=== PATIENT | female | born 1960 | race Caucasian/White ===

== ENCOUNTER 2017-10-29 22:11 | Observation (INO) | payer MEDICARE, MEDICAID ==
[2017-10-29] MEDS ORDERED: Sodium Chloride 0.9% 1,000 ML IV ONE (22:14)
[2017-10-29] MEDS ORDERED: Sodium Chloride 0.9% 2.5 ML Syringe FLUSH PRN ×2 (22:14)
[2017-10-29] MEDS ORDERED: Sodium Chloride 0.9% 10 ML Syringe FLUSH PRN (22:14)
[2017-10-29] MEDS ORDERED: Aspirin 81 MG Tab.Chew PO ONE (22:14)
--- NOTE | 2017-10-29 22:17 | EDM.PDOC ---
ED HPI GENERAL MEDICAL PROBLEM - General Stated Complaint: CHEST PAIN Time Seen by Provider: 10/29/17 22:14 Source of Information: Reports: Patient History Limitations: Reports: No Limitations - History of Present Illness INITIAL COMMENTS - FREE TEXT/NARRATIVE: HISTORY AND PHYSICAL: History of present illness: 57-year-old female presented to emergency department with chief complaint of chest pain starting approximately 45 minutes ago with past medical history of hypertension and anxiety/depression. Patient states that she was sorting boxes while sitting in a chair when she began to have substernal chest pain. She does report some associated shortness of breath but no nausea or diaphoresis. Pain lasted for approximately 15-20 minutes but was relieved before she got to the emergency room. She describes pain as dull and constant. As above patient states the pain went away on its own. She did not take any medications. She has never had similar chest pain in the past. She does report that she's had "mini strokes" in the past but is not on a blood thinner other than aspirin daily. Patient was feeling her normal self today and denies any recent illness. She does report that she has been somewhat anxious and stressed this evening. She has not taken her antianxiety medications. She currently denies any chest pain, palpitations, shortness of breath, syncopal episodes, or focal neurologic deficits. Initial EKG showed NSR with left bundle branch lock with a rate of 90. Initial blood pressure 190 systolic. On initial exam patient is somewhat anxious and overall nondiaphoretic or short of breath. 2240-CBC reveals mild leukocytosis at 13.5k Review of systems: As per history of present illness and below otherwise all systems reviewed and negative. Past medical history: As per history of present illness and as reviewed below otherwise noncontributory. Surgical history: As per history of present illness and as reviewed below otherwise noncontributory. Social history: No reported history of drug or alcohol abuse. Family history: As per history of present illness and as reviewed below otherwise noncontributory. Physical exam: HEENT: Atraumatic, normocephalic, pupils reactive, negative for conjunctival pallor or scleral icterus, mucous membranes moist, throat clear, neck supple, nontender, trachea midline. Lungs: Clear to auscultation, breath sounds equal bilaterally, chest nontender. Heart: S1S2, regular, negative for clicks, rubs, or JVD. Abdomen: Soft, nondistended, nontender. Negative for masses or hepatosplenomegaly. Negative for costovertebral tenderness. Pelvis: Stable nontender. Genitourinary: Deferred. Rectal: Deferred. Extremities: Atraumatic, negative for cords or calf pain. Neurovascular unremarkable. Neuro: Awake, alert, oriented. Cranial nerves II through XII unremarkable. Cerebellum unremarkable. Motor and sensory unremarkable throughout. Exam nonfocal. Diagnostics: CBC, CMP, troponin, INR, EKG, chest x-ray Therapeutics: Aspirin 324 mg by mouth 1, 1 L normal saline, 1 mg Ativan IV 1 Impression: Atypical chest pain Plan: CBC did show some mild leukocytosis but most likely secondary to stress as no other findings were consistent with a infection. Urinalysis as well as CMP were unremarkable. Troponin was negative and EKG showed no significant ST changes. Chest x-ray did show some pulmonary vascular congestion but no effusion. Patient remained stable with normal oxygen saturation and no return of her chest pain. Most likely anxiety related however did call hospitalist Dr. Vazquez who admitted patient for observation atypical chest pain. Definitive disposition and diagnosis as appropriate pending reevaluation and review of above. chest Pain Score (Numeric/FACES): 2 - Related Data Allergies Allergy/AdvReac Type Severity Reaction Status Date / Time No Known Allergies Allergy Verified 12/08/13 22:28 Home Meds: Home Meds ARIPiprazole [Abilify] 10 mg PO 12/08/13 [History] Aspirin/Acetaminophen/Caffeine [Migraine Relief Caplet] 1 tab PO DAILY PRN 12/08 [History] Chlorthalidone 1.5 tab PO DAILY 12/08/13 [History] Desvenlafaxine [Pristiq] 100 mg PO DAILY 12/08/13 [History] PARoxetine [Paxil] 40 mg PO DAILY 12/08/13 [History] Temazepam 15 mg PO BEDTIME 12/08/13 [History] Topiramate 200 mg PO 12/08/13 [History] Verapamil HCl [Verapamil ER] 180 mg PO DAILY 12/08/13 [History] ED ROS GENERAL - Review of Systems Review Of Systems: ROS reveals no pertinent complaints other than HPI. ED EXAM, GENERAL - Physical Exam Exam: See Below Course - Vital Signs Last Recorded V/S: Last Vital Signs Temp 97 F 10/29/17 22:11 Pulse 88 10/29/17 23:30 Resp 18 10/29/17 23:30 BP 182/81 H 10/29/17 23:30 Pulse Ox 96 10/29/17 23:30 - Orders/Labs/Meds Orders: Active Orders 24 hr Category Date Time Status Admission Status [Patient Status] [ADT] Stat ADT 10/30/17 01:00 Active Cardiac Monitoring [RC] . DIRECTED Care 10/29/17 22:14 Active Cardiac Monitoring [RC] . DIRECTED Care 10/30/17 01:00 Active EKG Documentation Completion [RC] STAT Care 10/29/17 22:14 Active Oxygen Therapy [RC] ASDIRECTED Care 10/29/17 22:14 Active Pulse Oximetry [RC] ASDIRECTED Care 10/29/17 22:14 Active Chest 1V Frontal [CR] Stat Exams 10/29/17 22:14 Taken CULTURE URINE [RM] Stat Lab 10/30/17 00:31 Ordered UA W/MICROSCOPIC [URIN] Stat Lab 10/30/17 00:31 Ordered Sodium Chloride 0.9% [Saline Flush] Med 10/29/17 22:14 Active 10 ml FLUSH ASDIRECTED PRN Sodium Chloride 0.9% [Saline Flush] Med 10/29/17 22:14 Active 2.5 ml FLUSH ASDIRECTED PRN Sodium Chloride 0.9% [Saline Flush] Med 10/29/17 22:14 Active 2.5 ml FLUSH ASDIRECTED PRN Saline Lock Insert [OM.PC] Stat Oth 10/29/17 22:14 Ordered Medication Orders Sodium Chloride (Saline Flush) 2.5 ml FLUSH ASDIRECTED PRN PRN Reason: Keep Vein Open Sodium Chloride (Saline Flush) 10 ml FLUSH ASDIRECTED PRN PRN Reason: Keep Vein Open Sodium Chloride (Saline Flush) 2.5 ml FLUSH ASDIRECTED PRN PRN Reason: Keep Vein Open Labs: Laboratory Tests 10/29/17 10/29/17 10/29/17 Range/Units 22:20 22:20 22:20 WBC 13.49 H (4.0-11.0) K/uL RBC 4.79 (4.30-5.90) M/uL Hgb 13.8 (12.0-16.0) g/dL Hct 42.4 (36.0-46.0) % MCV 88.5 (80.0-98.0) fL MCH 28.8 (27.0-32.0) pg MCHC 32.5 (31.0-37.0) g/dL RDW Std Deviation 44.3 (28.0-62.0) fl RDW Coeff of [place] 14 (11.0-15.0) % Plt Count 276 (150-400) K/uL MPV 10.60 (7.40-12.00) fL Neut % (Auto) 64.6 (48.0-80.0) % Lymph % (Auto) 28.3 (16.0-40.0) % [place] % (Auto) 5.7 (0.0-15.0) % Eos % (Auto) 1.3 (0.0-7.0) % Baso % (Auto) 0.1 (0.0-1.5) % Neut # (Auto) 8.7 H (1.4-5.7) K/uL Lymph # (Auto) 3.8 H (0.6-2.4) K/uL [place] # (Auto) 0.8 (0.0-0.8) K/uL Eos # (Auto) 0.2 (0.0-0.7) K/uL Baso # (Auto) 0.0 (0.0-0.1) K/uL Nucleated RBC % 0.0 /100WBC Nucleated RBCs # 0 K/uL INR 0.95 D-Dimer, Quantitative 0.53 H (0.0-0.52) mg/LFEU Sodium 140 (136-145) mmol/L Potassium 3.5 (3.5-5.1) mmol/L Chloride 104 (98-107) mmol/L Carbon Dioxide 26.2 (21.0-32.0) mmol/L BUN 18 (7.0-18.0) mg/dL Creatinine 1.1 H (0.6-1.0) mg/dL Est Cr Clr Drug Dosing 42.58 mL/min Estimated GFR (MDRD) 51.2 ml/min Glucose 162 H (74-106) mg/dL Calcium 9.1 (8.5-10.1) mg/dL Total Bilirubin 0.2 (0.2-1.0) mg/dL AST 29 (15-37) IU/L ALT 31 (14-63) IU/L Alkaline Phosphatase 91 (46-116) U/L Troponin I < 0.050 (0.000-0.056) ng/mL Total Protein 8.1 (6.4-8.2) g/dL Albumin 3.7 (3.4-5.0) g/dL Globulin 4.4 H (2.0-3.5) g/dL Albumin/Globulin Ratio 0.8 L (1.3-2.8) Lipase 123 (73-393) U/L Urine Color Urine Appearance Urine pH (5.0-8.0) Ur Specific [place] (1.001-1.035) Urine Protein (NEGATIVE) mg/dL Urine Glucose (UA) (NEGATIVE) mg/dL Urine Ketones (NEGATIVE) mg/dL Urine Occult Blood (NEGATIVE) Urine Nitrite (NEGATIVE) Urine Bilirubin (NEGATIVE) Urine Urobilinogen (<2.0) EU/dL Ur Leukocyte Esterase (NEGATIVE) Urine RBC (0-2/HPF) Urine WBC (0-5/HPF) Ur Epithelial Cells (NONE-FEW) Urine Bacteria (NEGATIVE) 10/30/17 Range/Units 00:31 WBC (4.0-11.0) K/uL RBC (4.30-5.90) M/uL Hgb (12.0-16.0) g/dL Hct (36.0-46.0) % MCV (80.0-98.0) fL MCH (27.0-32.0) pg MCHC (31.0-37.0) g/dL RDW Std Deviation (28.0-62.0) fl RDW Coeff of [place] (11.0-15.0) % Plt Count (150-400) K/uL MPV (7.40-12.00) fL Neut % (Auto) (48.0-80.0) % Lymph % (Auto) (16.0-40.0) % [place] % (Auto) (0.0-15.0) % Eos % (Auto) (0.0-7.0) % Baso % (Auto) (0.0-1.5) % Neut # (Auto) (1.4-5.7) K/uL Lymph # (Auto) (0.6-2.4) K/uL [place] # (Auto) (0.0-0.8) K/uL Eos # (Auto) (0.0-0.7) K/uL Baso # (Auto) (0.0-0.1) K/uL Nucleated RBC % /100WBC Nucleated RBCs # K/uL INR D-Dimer, Quantitative (0.0-0.52) mg/LFEU Sodium (136-145) mmol/L Potassium (3.5-5.1) mmol/L Chloride (98-107) mmol/L Carbon Dioxide (21.0-32.0) mmol/L BUN (7.0-18.0) mg/dL Creatinine (0.6-1.0) mg/dL Est Cr Clr Drug Dosing mL/min Estimated GFR (MDRD) ml/min Glucose (74-106) mg/dL Calcium (8.5-10.1) mg/dL Total Bilirubin (0.2-1.0) mg/dL AST (15-37) IU/L ALT (14-63) IU/L Alkaline Phosphatase (46-116) U/L Troponin I (0.000-0.056) ng/mL Total Protein (6.4-8.2) g/dL Albumin (3.4-5.0) g/dL Globulin (2.0-3.5) g/dL Albumin/Globulin Ratio (1.3-2.8) Lipase (73-393) U/L Urine Color YELLOW Urine Appearance HAZY Urine pH 6.0 (5.0-8.0) Ur Specific [place] 1.010 (1.001-1.035) Urine Protein NEGATIVE (NEGATIVE) mg/dL Urine Glucose (UA) NEGATIVE (NEGATIVE) mg/dL Urine Ketones NEGATIVE (NEGATIVE) mg/dL Urine Occult Blood SMALL H (NEGATIVE) Urine Nitrite NEGATIVE (NEGATIVE) Urine Bilirubin NEGATIVE (NEGATIVE) Urine Urobilinogen 0.2 (<2.0) EU/dL Ur Leukocyte Esterase NEGATIVE (NEGATIVE) Urine RBC 2-4 (0-2/HPF) Urine WBC 0-2 (0-5/HPF) Ur Epithelial Cells FEW (NONE-FEW) Urine Bacteria FEW (NEGATIVE) Meds: Medications Generic Name Dose Route Start Last Admin Trade Name Freq PRN Reason Stop Dose Admin Sodium Chloride 2.5 ml 10/29/17 22:14 Saline Flush FLUSH ASDIRECTED PRN Keep Vein Open Sodium Chloride 10 ml 10/29/17 22:14 Saline Flush FLUSH ASDIRECTED PRN Keep Vein Open Sodium Chloride 2.5 ml 10/29/17 22:14 Saline Flush FLUSH ASDIRECTED PRN Keep Vein Open Discontinued Medications Generic Name Dose Route Start Last Admin Trade Name Freq PRN Reason Stop Dose Admin Aspirin 324 mg 10/29/17 22:14 10/29/17 22:33 Aspirin PO 10/29/17 22:15 324 mg ONETIME ONE Administration Sodium Chloride 1,000 mls @ 999 mls/hr 10/29/17 22:14 10/29/17 22:32 Normal Saline IV 10/29/17 23:14 999 mls/hr .Bolus ONE Administration Lorazepam 1 mg 10/29/17 22:19 10/29/17 22:33 Ativan IVPUSH 10/29/17 22:20 1 mg ONETIME ONE Administration Departure - Departure Time of Disposition: 01:04 Disposition: Admitted As Inpatient 66 Condition: Good Clinical Impression: Atypical chest pain - Discharge Information *PRESCRIPTION DRUG MONITORING PROGRAM REVIEWED*: Not Applicable *COPY OF PRESCRIPTION DRUG MONITORING REPORT IN PATIENT DWIGHT: Not Applicable - My Orders Last 24 Hours: My Active Orders 10/29/17 22:14 Cardiac Monitoring [RC] . DIRECTED EKG Documentation Completion [RC] STAT Oxygen Therapy [RC] ASDIRECTED Pulse Oximetry [RC] ASDIRECTED Chest 1V Frontal [CR] Stat Sodium Chloride 0.9% [Saline Flush] 10 ml FLUSH ASDIRECTED PRN Sodium Chloride 0.9% [Saline Flush] 2.5 ml FLUSH ASDIRECTED PRN Sodium Chloride 0.9% [Saline Flush] 2.5 ml FLUSH ASDIRECTED PRN Saline Lock Insert [OM.PC] Stat 10/30/17 00:31 CULTURE URINE [RM] Stat UA W/MICROSCOPIC [URIN] Stat 10/30/17 01:00 Admission Status [Patient Status] [ADT] Stat Cardiac Monitoring [RC] . DIRECTED - Assessment/Plan Last 24 Hours: My Active Orders 10/29/17 22:14 Cardiac Monitoring [RC] . DIRECTED EKG Documentation Completion [RC] STAT Oxygen Therapy [RC] ASDIRECTED Pulse Oximetry [RC] ASDIRECTED Chest 1V Frontal [CR] Stat Sodium Chloride 0.9% [Saline Flush] 10 ml FLUSH ASDIRECTED PRN Sodium Chloride 0.9% [Saline Flush] 2.5 ml FLUSH ASDIRECTED PRN Sodium Chloride 0.9% [Saline Flush] 2.5 ml FLUSH ASDIRECTED PRN Saline Lock Insert [OM.PC] Stat 10/30/17 00:31 CULTURE URINE [RM] Stat UA W/MICROSCOPIC [URIN] Stat 10/30/17 01:00 Admission Status [Patient Status] [ADT] Stat Cardiac Monitoring [RC] . DIRECTED
[2017-10-29] MEDS ORDERED: LORazepam 2 MG/ML SDV IVPUSH ONE (22:19)
[2017-10-29 22:51] LABS: CHLORIDE,CL 104 mmol/L (98-107); SODIUM,NA 140 mmol/L (136-145)
[2017-10-30 05:03] LABS: CHLORIDE,CL 105 mmol/L (98-107); SODIUM,NA 141 mmol/L (136-145)
[2017-10-30] MEDS ORDERED: Zolpidem Tartrate 10 MG PO PRN (12:07)
--- NOTE | 2017-10-30 12:10 | PCM.HP ---
H&P History of Present Illness - General Admit Problem/Dx: Admission Diagnosis/Problem Admission Diagnosis/Problem Atypical chest pain chest Pain Score (Numeric/FACES): 2 - Related Data Allergies/Adverse Reactions: Allergies Allergy/AdvReac Type Severity Reaction Status Date / Time No Known Allergies Allergy Verified 10/30/17 03:29 Home Medications: Home Meds ARIPiprazole [Abilify] 10 mg PO DAILY 12/08/13 [History] Aspirin/Acetaminophen/Caffeine [Migraine Relief Caplet] 1 tab PO DAILY 12/08/13 [History] Chlorthalidone 25 mg PO DAILY 12/08/13 [History] Desvenlafaxine [Pristiq] 100 mg PO DAILY 12/08/13 [History] PARoxetine [Paxil] 40 mg PO DAILY 12/08/13 [History] Topiramate 200 mg PO DAILY 12/08/13 [History] Verapamil HCl [Verapamil ER] 180 mg PO DAILY 12/08/13 [History] Aspirin [Halfprin] 81 mg PO DAILY 10/30/17 [History] Lisinopril/Hydrochlorothiazide [Lisinopril-Hctz 20-12.5 mg Tab] 1 each PO DAILY #90 tablet 10/30/17 [Rx] Metoprolol Succinate 25 mg PO DAILY #90 tab.er.24h 10/30/17 [Rx] Zolpidem Tartrate [Ambien] 10 mg PO BEDTIME PRN 10/30/17 [History] atorvaSTATin [Lipitor] 40 mg PO BEDTIME #30 tab 10/30/17 [Rx] Past Medical History Cardiovascular History: Reports: Hypertension [employer] History: Reports: Musculoskeletal History: Reports: Arthritis Neurological History: Reports: CVA, Migraines, Other (See Below) Other Neuro History: Reports had "Mini strokes 3 years ago". Psychiatric History: Reports: Anxiety, Depression Endocrine/Metabolic History: Reports: Diabetes, Type II, Hypothyroidism, Obesity /BMI 30+ - Past Surgical History Female Surgical History: Reports: Section Musculoskeletal Surgical History: Reports: None Social & Family History - Family History Family Medical History: Noncontributory - Tobacco Use Smoking Status *Q: Never Smoker Second Hand Smoke Exposure: No - Caffeine Use Caffeine Use: Reports: Tea - Recreational Drug Use Recreational Drug Use: No Exam - Vital Signs Vital Signs: Last Vital Signs Temp 97.3 F 10/30/17 08:00 Pulse 78 10/30/17 08:00 Resp 18 10/30/17 08:00 BP 136/62 10/30/17 08:00 Pulse Ox 96 10/30/17 08:00 Weight: 232 lb 2.348 oz - Patient Data Lab Results Last 24 hrs: Laboratory Results - last 24 hr 10/29/17 10/29/17 10/29/17 Range/Units 22:20 22:20 22:20 WBC 13.49 H (4.0-11.0) K/uL RBC 4.79 (4.30-5.90) M/uL Hgb 13.8 (12.0-16.0) g/dL Hct 42.4 (36.0-46.0) % MCV 88.5 (80.0-98.0) fL MCH 28.8 (27.0-32.0) pg MCHC 32.5 (31.0-37.0) g/dL RDW Std Deviation 44.3 (28.0-62.0) fl RDW Coeff of [place] 14 (11.0-15.0) % Plt Count 276 (150-400) K/uL MPV 10.60 (7.40-12.00) fL Neut % (Auto) 64.6 (48.0-80.0) % Lymph % (Auto) 28.3 (16.0-40.0) % [place] % (Auto) 5.7 (0.0-15.0) % Eos % (Auto) 1.3 (0.0-7.0) % Baso % (Auto) 0.1 (0.0-1.5) % Neut # (Auto) 8.7 H (1.4-5.7) K/uL Lymph # (Auto) 3.8 H (0.6-2.4) K/uL [place] # (Auto) 0.8 (0.0-0.8) K/uL Eos # (Auto) 0.2 (0.0-0.7) K/uL Baso # (Auto) 0.0 (0.0-0.1) K/uL Nucleated RBC % 0.0 /100WBC Nucleated RBCs # 0 K/uL INR 0.95 D-Dimer, Quantitative 0.53 H (0.0-0.52) mg/LFEU Sodium 140 (136-145) mmol/L Potassium 3.5 (3.5-5.1) mmol/L Chloride 104 (98-107) mmol/L Carbon Dioxide 26.2 (21.0-32.0) mmol/L BUN 18 (7.0-18.0) mg/dL Creatinine 1.1 H (0.6-1.0) mg/dL Est Cr Clr Drug Dosing 42.58 mL/min Estimated GFR (MDRD) 51.2 ml/min Glucose 162 H (74-106) mg/dL Hemoglobin A1c (4.5-6.2) % Calcium 9.1 (8.5-10.1) mg/dL Total Bilirubin 0.2 (0.2-1.0) mg/dL AST 29 (15-37) IU/L ALT 31 (14-63) IU/L Alkaline Phosphatase 91 (46-116) U/L Troponin I < 0.050 (0.000-0.056) ng/mL Total Protein 8.1 (6.4-8.2) g/dL Albumin 3.7 (3.4-5.0) g/dL Globulin 4.4 H (2.0-3.5) g/dL Albumin/Globulin Ratio 0.8 L (1.3-2.8) Lipase 123 (73-393) U/L Urine Color Urine Appearance Urine pH (5.0-8.0) Ur Specific [place] (1.001-1.035) Urine Protein (NEGATIVE) mg/dL Urine Glucose (UA) (NEGATIVE) mg/dL Urine Ketones (NEGATIVE) mg/dL Urine Occult Blood (NEGATIVE) Urine Nitrite (NEGATIVE) Urine Bilirubin (NEGATIVE) Urine Urobilinogen (<2.0) EU/dL Ur Leukocyte Esterase (NEGATIVE) Urine RBC (0-2/HPF) Urine WBC (0-5/HPF) Ur Epithelial Cells (NONE-FEW) Urine Bacteria (NEGATIVE) 10/30/17 10/30/17 10/30/17 Range/Units 00:31 04:27 04:27 WBC (4.0-11.0) K/uL RBC (4.30-5.90) M/uL Hgb (12.0-16.0) g/dL Hct (36.0-46.0) % MCV (80.0-98.0) fL MCH (27.0-32.0) pg MCHC (31.0-37.0) g/dL RDW Std Deviation (28.0-62.0) fl RDW Coeff of [place] (11.0-15.0) % Plt Count (150-400) K/uL MPV (7.40-12.00) fL Neut % (Auto) (48.0-80.0) % Lymph % (Auto) (16.0-40.0) % [place] % (Auto) (0.0-15.0) % Eos % (Auto) (0.0-7.0) % Baso % (Auto) (0.0-1.5) % Neut # (Auto) (1.4-5.7) K/uL Lymph # (Auto) (0.6-2.4) K/uL [place] # (Auto) (0.0-0.8) K/uL Eos # (Auto) (0.0-0.7) K/uL Baso # (Auto) (0.0-0.1) K/uL Nucleated RBC % /100WBC Nucleated RBCs # K/uL INR D-Dimer, Quantitative (0.0-0.52) mg/LFEU Sodium 141 (136-145) mmol/L Potassium 3.5 (3.5-5.1) mmol/L Chloride 105 (98-107) mmol/L Carbon Dioxide 27.1 (21.0-32.0) mmol/L BUN 17 (7.0-18.0) mg/dL Creatinine 0.9 (0.6-1.0) mg/dL Est Cr Clr Drug Dosing 52.04 mL/min Estimated GFR (MDRD) > 60.0 ml/min Glucose 172 H (74-106) mg/dL Hemoglobin A1c (4.5-6.2) % Calcium 8.5 (8.5-10.1) mg/dL Total Bilirubin (0.2-1.0) mg/dL AST (15-37) IU/L ALT (14-63) IU/L Alkaline Phosphatase (46-116) U/L Troponin I < 0.050 (0.000-0.056) ng/mL Total Protein (6.4-8.2) g/dL Albumin (3.4-5.0) g/dL Globulin (2.0-3.5) g/dL Albumin/Globulin Ratio (1.3-2.8) Lipase (73-393) U/L Urine Color YELLOW Urine Appearance HAZY Urine pH 6.0 (5.0-8.0) Ur Specific [place] 1.010 (1.001-1.035) Urine Protein NEGATIVE (NEGATIVE) mg/dL Urine Glucose (UA) NEGATIVE (NEGATIVE) mg/dL Urine Ketones NEGATIVE (NEGATIVE) mg/dL Urine Occult Blood SMALL H (NEGATIVE) Urine Nitrite NEGATIVE (NEGATIVE) Urine Bilirubin NEGATIVE (NEGATIVE) Urine Urobilinogen 0.2 (<2.0) EU/dL Ur Leukocyte Esterase NEGATIVE (NEGATIVE) Urine RBC 2-4 (0-2/HPF) Urine WBC 0-2 (0-5/HPF) Ur Epithelial Cells FEW (NONE-FEW) Urine Bacteria FEW (NEGATIVE) 10/30/17 10/30/17 Range/Units 04:27 10:16 WBC (4.0-11.0) K/uL RBC (4.30-5.90) M/uL Hgb (12.0-16.0) g/dL Hct (36.0-46.0) % MCV (80.0-98.0) fL MCH (27.0-32.0) pg MCHC (31.0-37.0) g/dL RDW Std Deviation (28.0-62.0) fl RDW Coeff of [place] (11.0-15.0) % Plt Count (150-400) K/uL MPV (7.40-12.00) fL Neut % (Auto) (48.0-80.0) % Lymph % (Auto) (16.0-40.0) % [place] % (Auto) (0.0-15.0) % Eos % (Auto) (0.0-7.0) % Baso % (Auto) (0.0-1.5) % Neut # (Auto) (1.4-5.7) K/uL Lymph # (Auto) (0.6-2.4) K/uL [place] # (Auto) (0.0-0.8) K/uL Eos # (Auto) (0.0-0.7) K/uL Baso # (Auto) (0.0-0.1) K/uL Nucleated RBC % /100WBC Nucleated RBCs # K/uL INR D-Dimer, Quantitative (0.0-0.52) mg/LFEU Sodium (136-145) mmol/L Potassium (3.5-5.1) mmol/L Chloride (98-107) mmol/L Carbon Dioxide (21.0-32.0) mmol/L BUN (7.0-18.0) mg/dL Creatinine (0.6-1.0) mg/dL Est Cr Clr Drug Dosing mL/min Estimated GFR (MDRD) ml/min Glucose (74-106) mg/dL Hemoglobin A1c 7.7 H (4.5-6.2) % Calcium (8.5-10.1) mg/dL Total Bilirubin (0.2-1.0) mg/dL AST (15-37) IU/L ALT (14-63) IU/L Alkaline Phosphatase (46-116) U/L Troponin I < 0.050 (0.000-0.056) ng/mL Total Protein (6.4-8.2) g/dL Albumin (3.4-5.0) g/dL Globulin (2.0-3.5) g/dL Albumin/Globulin Ratio (1.3-2.8) Lipase (73-393) U/L Urine Color Urine Appearance Urine pH (5.0-8.0) Ur Specific [place] (1.001-1.035) Urine Protein (NEGATIVE) mg/dL Urine Glucose (UA) (NEGATIVE) mg/dL Urine Ketones (NEGATIVE) mg/dL Urine Occult Blood (NEGATIVE) Urine Nitrite (NEGATIVE) Urine Bilirubin (NEGATIVE) Urine Urobilinogen (<2.0) EU/dL Ur Leukocyte Esterase (NEGATIVE) Urine RBC (0-2/HPF) Urine WBC (0-5/HPF) Ur Epithelial Cells (NONE-FEW) Urine Bacteria (NEGATIVE) Result Diagrams: 10/30/17 10:16 10/30/17 04:27 Orders Last 24hrs: Active Orders 24 hr Category Date Time Status Admission Status [Patient Status] [ADT] Stat ADT 10/30/17 01:00 Active Cardiac Monitoring [RC] . DIRECTED Care 10/29/17 22:14 Active Cardiac Monitoring [RC] Q8H Care 10/30/17 01:47 Active Oxygen Therapy [RC] ASDIRECTED Care 10/29/17 22:14 Active Pulse Oximetry [RC] ASDIRECTED Care 10/29/17 22:14 Active Regular Diet [DIET] Diet 10/30/17 Breakfast Active Chest 1V Frontal [CR] Stat Exams 10/29/17 22:14 Taken CBC W/O DIFF,HEMOGRAM [HEME] Routine Lab 10/30/17 12:15 Ordered CULTURE URINE [RM] Stat Lab 10/30/17 00:31 Ordered LIPID PANEL [CHEM] Stat Lab 10/30/17 12:09 Ordered UA W/MICROSCOPIC [URIN] Stat Lab 10/30/17 00:31 Ordered ARIPiprazole [Abilify] Med 10/30/17 12:15 Ordered 10 mg PO DAILY Aspirin [Halfprin] Med 10/30/17 12:15 Ordered 81 mg PO DAILY Aspirin/Acetaminophen/Caffeine Med 10/30/17 12:15 Ordered 1 tab PO DAILY Chlorthalidone Med 10/31/17 09:00 Ordered 1 tab PO DAILY Desvenlafaxine [Pristiq] Med 10/30/17 12:15 Ordered 100 mg PO DAILY PARoxetine [Paxil] Med 10/30/17 12:15 Ordered 40 mg PO DAILY Sodium Chloride 0.9% [Saline Flush] Med 10/29/17 22:14 Active 10 ml FLUSH ASDIRECTED PRN Sodium Chloride 0.9% [Saline Flush] Med 10/29/17 22:14 Active 2.5 ml FLUSH ASDIRECTED PRN Sodium Chloride 0.9% [Saline Flush] Med 10/29/17 22:14 Active 2.5 ml FLUSH ASDIRECTED PRN Topiramate [Topiramate] Med 10/30/17 12:15 Ordered 200 mg PO DAILY Verapamil HCl [Verapamil ER] Med 10/30/17 12:15 Ordered 180 mg PO DAILY Zolpidem Tartrate Med 10/30/17 12:07 Ordered 10 mg PO BEDTIME PRN Saline Lock Insert [OM.PC] Stat Oth 10/29/17 22:14 Ordered Medication Orders Aripiprazole (Abilify) 10 mg PO DAILY YUE Aspirin (Halfprin) 81 mg PO DAILY YUE Chlorthalidone (Chlorthalidone) mg PO DAILY YUE Non-Formulary Medication (Aspirin/Acetaminophen/Caffeine) 1 tab PO DAILY YUE Non-Formulary Medication (Desvenlafaxine [Pristiq]) 100 mg PO DAILY YUE Non-Formulary Medication (Paroxetine [Paxil]) 40 mg PO DAILY YUE Non-Formulary Medication (Topiramate [Topiramate]) 200 mg PO DAILY YUE Non-Formulary Medication (Verapamil Hcl [Verapamil Er]) 180 mg PO DAILY YUE Non-Formulary Medication (Zolpidem Tartrate) 10 mg PO BEDTIME PRN PRN Reason: Sleep Sodium Chloride (Saline Flush) 2.5 ml FLUSH ASDIRECTED PRN PRN Reason: Keep Vein Open Sodium Chloride (Saline Flush) 10 ml FLUSH ASDIRECTED PRN PRN Reason: Keep Vein Open Sodium Chloride (Saline Flush) 2.5 ml FLUSH ASDIRECTED PRN PRN Reason: Keep Vein Open
[2017-10-30] MEDS ORDERED: Topiramate 100 MG Tab PO SCH (12:15)
[2017-10-30] MEDS ORDERED: ASPIRIN PO SCH (12:15)
[2017-10-30] MEDS ORDERED: PARoxetine 20 MG Tab PO SCH (12:15)
[2017-10-30] MEDS ORDERED: Verapamil 180 MG Tab.ER PO SCH (12:15)
[2017-10-30] MEDS ORDERED: ARIPiprazole 10 MG Tab PO SCH (12:15)
[2017-10-30] MEDS ORDERED: Desvenlafaxine [Pristiq] 100 MG PO SCH (12:15)
[2017-10-30] MEDS ORDERED: Aspirin 81 MG Tab.EC PO SCH (12:15)
[2017-10-30] MEDS ORDERED: ACETAMINOPHEN PO SCH (12:15)
[2017-10-30] MEDS ORDERED: CAFFEINE PO SCH (12:15)
[2017-10-30] MEDS ORDERED: atorvaSTATin 40 MG Tab PO ONE (12:40)
[2017-10-30] MEDS ORDERED: Heparin Sod,Pork In 0.45% Nacl 25,000 UNIT/500 ML IV.SOLN IV SCH (12:45)
[2017-10-30] MEDS ORDERED: Metoprolol Tartrate 25 MG Tab PO SCH (12:45)
[2017-10-30] MEDS ORDERED: Potassium Chloride 20 MEQ Tab.ER PO ONE (12:56)
[2017-10-30] MEDS ORDERED: Heparin Sodium 5,000 Units/ML Vial IVPUSH ONE (13:02)
[2017-10-30] MEDS ORDERED: Lisinopril/Hydrochlorothiazide 10-12.5 MG Tab PO SCH (15:00)
[2017-10-30] MEDS ORDERED: Lisinopril 5 MG Tab PO ONE (15:50)
--- NOTE | 2017-10-30 22:34 | PCM.SN ---
- Free Text/Narrative Note: [id number]
--- NOTE | 2017-10-31 06:18 | HP ---
DATE OF : 1960 PRIMARY CARE PHYSICIAN: Unknown PCP HISTORY OF PRESENT ILLNESS: The patient is a 57-year-old female, morbidly obese with history of diabetes, who presented to hospital last night because she had chest pain that started when she was sorting through some boxes while she was cleaning in the basement. The chest pain was 6/10 in intensity, described as an elephant sitting on her chest. No radiation in the neck or in the left arm. Pain came at rest and it was associated with more shortness of breath. The patient says she was extremely stressed out. She has a boy of 15 years old and she has a CPS investigation and she got very stressed about it. The patient denies any other prior history of chest pain. ROS: 12 points ROs is negative except as in HPi PAST MEDICAL HISTORY: She has depression and anxiety, migraine headaches, hypothyroidism, and hypertension. The patient said she had mini strokes in the past. PAST SURGICAL HISTORY: She had a . She had removal of a cyst behind the uterus 25 years ago, and nose surgery where the bone from her nose was removed 3 years ago. SOCIAL HISTORY: She never smoked. No alcohol use. No drug use. FAMILY HISTORY: She states she has family history of stroke, diabetes mellitus, and myocardial infarction. VITAL SIGNS: At admission; temperature 97, pulse oximetry 80, and blood pressure 154/59, and oxygen saturation 98%. PHYSICAL EXAMINATION: HEENT: Head is atraumatic, normocephalic. Pupils are equally reactive to light. NECK: Supple. No thyromegaly. No lymphadenopathy. HEART: S1, S2. Regular rhythm and rate. No murmurs. LUNGS: Clear to auscultation bilaterally. ABDOMEN: Soft, nontender. Positive bowel sounds. EXTREMITIES: No edema. Neurologic : there are no gross neurologic deficits Her blood pressure at admission was 191/98, subsequent blood pressures 182/81 and 191/88. LABORATORY DATA: On admission; WBC was 13.49, hemoglobin 13.8, hematocrit 42.4, and platelet count is 276. INR 0.95. D-dimer 0.53. Sodium 140, potassium 3.5, chloride 104, CO2 of 26.2, BUN 18, creatinine 1.1, glucose 162. Hemoglobin A1c 1.7, calcium 9.1, total bilirubin 0.2, AST 29, ALT 31, alkaline phosphatase 91. Troponin less than 0.05 x3. Total protein 8.1, albumin 2.7, globulin 4.4, and triglycerides 96, cholesterol 197, LDL 132, VLDL 19, HDL 46, and lipase 123. Urine color is yellow, appearance is hazy, pH 6, protein negative, glucose negative, ketone negative. Urine occult blood small, nitrites negative, bilirubin negative, urobilinogen 0.2, leukocyte esterase negative, rbc's 2 to 4, wbc's 0 to 2, epithelial cells few, urine bacteria few. EKG shows sinus rhythm with left bundle-branch block. The patient did not have left bundle-branch block prior and her previous EKG that we have in EMR was done in November of 2013 and the patient had a sinus rhythm with ST-T depression. ASSESSMENT AND PLAN: Chest pain rule out acute coronary syndrome. The patient was admitted to telemetry, had aspirin 325 mg given in the emergency room. Did not have any other chest pain episodes in the hospital. Troponin 3 sets were negative. The patient's blood pressure was uncontrolled . She was given additional lisinopril 15 mg p.o. For comorbidity, the patient was continued with her home medication. DISCHARGE SUMMARY: Patient 3 sets of cardiac enzymes were negative . I have called to transfer the patient to monitor cardiac catheterization. I discussed with ER physician Dr. Albrecht, who recommended to discuss it with the unix architect. The unix architect , Dr. Mendoza recommended the patient to be walked around and if she does not get chest pain, she can be discharged home as long as her blood pressure is controlled, and the patient to follow up as outpatient to have stress test She was asked to walk around in the unit and she did not have any chest pain. She was given an additional atorvastatin 40 mg p.o. daily to stabilize cholesterol plaque and she is also on metoprolol 25 mg p.o. daily and lisinopril 20 and HCTZ 12 mg p.o. daily. The patient to follow up stress test with Cardiology and to follow up with her primary care physician. She was also advised if she has any other chest pain to come back to hospital. LANDEN / MODL /[id number] DORINA
[2017-10-31] MEDS ORDERED: Chlorthalidone 25 MG Tab PO SCH (09:00)
--- NOTE | 2017-10-31 13:17 | CR ---
EXAM DATE: 10/30/17 PATIENT'S AGE: 57 Patient: GHASSAN SWARTZ Facility: [place], [place] Site . Site : 1960 Study: XRay Chest [id number] 10:45:45 PM Ordering Physician: David Chu Final Report: INDICATION: Chest pain TECHNIQUE: Chest radiograph 1 view COMPARISON: None FINDINGS: Severe degradation of image quality noted due to body habitus. Mediastinum: The mediastinum is normal in appearance. The heart silhouette is normal in size and morphology. Lungs: Moderate pulmonary vascular congestion is noted. No sign of pleural effusion seen. No pneumothorax is identified. Bones and soft tissue: Unremarkable for age. IMPRESSION: 1. Moderate pulmonary vascular congestion is noted. Dictated by Malachi Dukes MD @ 10/29/2017 10:56:07 PM Dictated by: Malachi Dukes MD @ 10/29/2017 22:56:12 (Electronic Signature) Report Signed by Proxy. DORINA
== END 2017-10-30 16:30 | disposition home or self-care (01) ==
LOC: MW.ED 22:11 → MW.MS 10-30 01:00
PROVIDERS: ADMIT Internal Medicine; ATTEND Internal Medicine
DX: R07.89 Other chest pain (principal); I10 Essential (primary) hypertension; E03.9 Hypothyroidism, unspecified; F32.9 Major depressive disorder, single episode, unspecified; F41.9 Anxiety disorder, unspecified; Z79.82 Long term (current) use of aspirin; Z79.899 Other long term (current) drug therapy
CPT/HCPCS: 36415; 71045; 80048; 80053; 80061; 81001; 83036; 83690; 84484; 85025; 85027; 85379; 85610; 87086; 93005; 96361; 96374; 99285; A9270; G0378; J2060; J7040; 99284

== ENCOUNTER 2018-06-03 18:43 | Emergency (ER) | payer MEDICAID, MEDICARE ==
[2018-06-03] MEDS ORDERED: Lidocaine 2% Viscous Solution 15 ML Cup PO ONE (19:01)
[2018-06-03] MEDS ORDERED: Benzocaine 20% Topical Spray UD MUCMEM ONE (19:01)
[2018-06-03] MEDS ORDERED: Ketorolac 60 MG/2 ML SDV IM ONE (19:08)
--- NOTE | 2018-06-03 19:09 | EDM.PDOC ---
ED HPI GENERAL MEDICAL PROBLEM - General Chief Complaint: ENT Problem Stated Complaint: PT HAS TOOTHACHE Time Seen by Provider: 06/03/18 19:09 Source of Information: Reports: Patient History Limitations: Reports: No Limitations - History of Present Illness INITIAL COMMENTS - FREE TEXT/NARRATIVE: HISTORY AND PHYSICAL: History of present illness: Patient is a 57-year-old female here with complaint of tooth pain x 1 week. She seemed to walk in clinic yesterday morning and given clindamycin. She did see dentist yesterday who recommended that she have a root canal. She states the pain is worse rather than better. She denies fevers, chills, nausea, vomiting, abdominal pain. She is otherwise in her usual state of good health. Review of systems: As per history of present illness and below otherwise all systems reviewed and negative. Past medical history: As per history of present illness and as reviewed below otherwise noncontributory. Surgical history: As per history of present illness and as reviewed below otherwise noncontributory. Social history: No reported history of drug or alcohol abuse. Family history: As per history of present illness and as reviewed below otherwise noncontributory. Physical exam: General: Patient sitting comfortably in no acute distress and nontoxic appearing HEENT: Swelling and erythema of the gums at the left back lower molars. Atraumatic, normocephalic, pupils reactive, negative for conjunctival pallor or scleral icterus, mucous membranes moist, throat clear, neck supple, nontender, trachea midline. No meningeal signs. Lungs: Clear to auscultation, breath sounds equal bilaterally, chest nontender. Heart: S1S2, regular, negative for clicks, rubs, or overt murmur. Abdomen: Soft, nondistended, nontender. Negative for masses or hepatosplenomegaly. Negative for costovertebral tenderness. Pelvis: Stable nontender. Genitourinary: Deferred. Rectal: Deferred. Extremities: Atraumatic, negative for cords or calf pain. Neurovascular unremarkable. Neuro: Awake, alert, oriented. Cranial nerves II through XII unremarkable. Cerebellum unremarkable. Motor and sensory unremarkable throughout. Exam nonfocal. Notes: Diagnostics: None Therapeutics: Dental balls Toradol 60mg IM Prescriptions: Penicillin Impression: Dentalgia, dental infection Plan: 1. Take antibiotic and use dental balls as instructed. 2. Follow-up with dentist 3. Return to ED as needed as discussed Definitive disposition and diagnosis as appropriate pending reevaluation and review of above. 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 Pain Score (Numeric/FACES): 10 - Related Data Allergies Allergy/AdvReac Type Severity Reaction Status Date / Time amoxicillin Allergy Abdominal Verified 06/03/18 18:59 Pain Home Meds: Home Meds Chlorthalidone 25 mg PO DAILY 12/08/13 [History] Topiramate 200 mg PO DAILY 12/08/13 [History] Aspirin [Halfprin] 81 mg PO DAILY 10/30/17 [History] Lisinopril/Hydrochlorothiazide [Lisinopril-Hctz 20-12.5 mg Tab] 1 each PO DAILY #90 tablet 10/30/17 [Rx] Metoprolol Succinate 25 mg PO DAILY #90 tab.er.24h 10/30/17 [Rx] Zolpidem Tartrate [Ambien] 5 mg PO BEDTIME PRN 10/30/17 [History] atorvaSTATin [Lipitor] 40 mg PO BEDTIME #30 tab 10/30/17 [Rx] Clindamycin HCl 1 tab PO TID 06/03/18 [History] Glimepiride [Amaryl] 1 tab PO DAILY 06/03/18 [History] Penicillin V Potassium [Veetids] 500 mg PO QID 7 Days #28 tab 06/03/18 [Rx] Past Medical History Cardiovascular History: Reports: 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 Psychiatric History: Reports: Anxiety, Depression Endocrine/Metabolic History: Reports: Diabetes, Type II, Hypothyroidism, Obesity /BMI 30+ - Past Surgical History Female Surgical History: Reports: Section Musculoskeletal Surgical History: Reports: None Social & Family History - Family History Family Medical History: Noncontributory - Tobacco Use Smoking Status *Q: Never Smoker - Caffeine Use Caffeine Use: Reports: Tea - Recreational Drug Use Recreational Drug Use: No ED ROS ENT - Review of Systems Review Of Systems: ROS reveals no pertinent complaints other than HPI. ED EXAM, ENT - Physical Exam Exam: See Below (see dictation) Course - Vital Signs Last Recorded V/S: Last Vital Signs Temp 97 F 06/03/18 18:50 Pulse 85 06/03/18 18:50 Resp 18 06/03/18 18:50 BP 132/75 06/03/18 18:50 Pulse Ox 96 06/03/18 18:50 - Orders/Labs/Meds Meds: Medications Discontinued Medications Generic Name Dose Route Start Last Admin Trade Name Shey PRN Reason Stop Dose Admin Benzocaine 2 each 06/03/18 19:01 Hurricaine One 20% MUCMEM 06/03/18 19:02 ONETIME ONE Ketorolac Tromethamine 60 mg 06/03/18 19:08 Toradol IM 06/03/18 19:09 ONETIME ONE Lidocaine HCl 15 ml 06/03/18 19:01 Xylocaine 2% Viscous PO 06/03/18 19:02 ONETIME ONE Departure - Departure Time of Disposition: 19:19 Disposition: Home, Self-Care 01 Condition: Good Clinical Impression: Dentalgia, Dental infection - Discharge Information Prescriptions: Penicillin V Potassium [Veetids] 500 mg PO QID 7 Days #28 tab Referrals: Daily Snow DO [Primary Care Provider] - Forms: ED Department Discharge Additional Instructions: The following information is given to patients seen in the emergency department who are being discharged to home. This information is to outline your options for follow-up care. We provide all patients seen in our emergency department with a follow-up referral. The need for follow-up, as well as the timing and circumstances, are variable depending upon the specifics of your emergency department visit. If you don't have a primary care physician on staff, we will provide you with a referral. We always advise you to contact your personal physician following an emergency department visit to inform them of the circumstance of the visit and for follow-up with them and/or the need for any referrals to a consulting specialist. The emergency department will also refer you to a specialist when appropriate. This referral assures that you have the opportunity for follow-up care with a specialist. All of these measure are taken in an effort to provide you with optimal care, which includes your follow-up. Under all circumstances we always encourage you to contact your private physician who remains a resource for coordinating your care. When calling for follow-up care, please make the office aware that this follow-up is from your recent emergency room visit. If for any reason you are refused follow-up, please contact the [facility] Emergency Department at and asked to speak to the emergency department charge nurse. 1. Take antibiotic and use dental balls as instructed. 2. Follow-up with dentist 3. Return to ED as needed as discussed
== END 2018-06-03 19:50 | disposition home or self-care (01) ==
LOC: MW.ED 18:43
DX: K04.7 Periapical abscess without sinus (principal); I10 Essential (primary) hypertension; F41.9 Anxiety disorder, unspecified; F32.9 Major depressive disorder, single episode, unspecified; E03.9 Hypothyroidism, unspecified; E11.9 Type 2 diabetes mellitus without complications; Z88.0 Allergy status to penicillin; Z79.899 Other long term (current) drug therapy
CPT/HCPCS: 96372; 99282; A9270; J1885; 99283

== ENCOUNTER 2018-09-10 03:48 | Emergency (ER) | payer MEDICARE ==
--- NOTE | 2018-09-10 03:58 | EDM.PDOC ---
ED HPI GENERAL MEDICAL PROBLEM - General Chief Complaint: Back Pain or Injury Stated Complaint: BACK PAIN Time Seen by Provider: 09/10/18 03:56 - History of Present Illness INITIAL COMMENTS - FREE TEXT/NARRATIVE: HISTORY AND PHYSICAL: History of present illness: The patient is a 58-year-old female with a history of cholesterolemia hypertension and diabetes and presents this morning with approximately 3 weeks of left lumbar back pain/posterior pelvis pain. The patient says that she had a minor fall about a month ago and did not have any pain with the injury and then about a week afterwards started having discomfort in this area which seems to have accelerated. She says it comes and goes and is worse with body position changes especially going from laying down to sitting up and oftentimes it will just start when she is sitting still. The patient says she is on disability and does not work and does not do any strenuous activity and says over the last few days she's been doing less and less because the discomfort. She has been using [id number] ibuprofen and ice to the area. The pain does not radiate down her leg or to the right side and there is no flank pain. She has no bowel or bladder disturbances and no numbness or tingling in her legs or weakness in her legs. She has no midline back pain. The patient does tell us that she was seen here in our clinic on and that encounter has been reviewed as able by me. On September 07, the patient did have blood work including a CMP hemoglobin A1c cholesterol panel and lipids TSH and an x-ray of her lumbar spine. The x-ray revealed L5-S1 degenerative disc disease but no other abnormalities. Patient says that she was not prescribed any medication for her back pain on this visit. When I asked her why she made a clinic appointment she said it was to follow-up for her other chronic medical problems as well as to discuss the back pain. She is not sure what her provider was planning going forward and as she is not having a lot of pain at the time prescriptions were given to her. Review of systems: As per history of present illness and below otherwise all systems reviewed and negative. Past medical history: As per history of present illness and as reviewed below otherwise noncontributory. Surgical history: As per history of present illness and as reviewed below otherwise noncontributory. Social history: No reported history of drug or alcohol abuse. Family history: As per history of present illness and as reviewed below otherwise noncontributory. Physical exam: General: Well-developed well-nourished mildly overweight female who is nontoxic and moves easily in the ED for my evaluation. She is interactive laughing and does not look like she isn't in any distress. Vital signs are noted by me. HEENT: Atraumatic, normocephalic, , negative for conjunctival pallor or scleral icterus, mucous membranes moist, throat clear, neck supple, nontender, trachea midline. Lungs: Clear to auscultation, breath sounds equal bilaterally, chest nontender. Heart: S1S2, regular rate and rhythm no overt murmurs Abdomen: Soft, nondistended, nontender. NABS. Negative for costovertebral tenderness. Pelvis: Stable nontender overall except for some discomfort with palpation of the left SI joint area without any gross inflammation or swelling. Genitourinary: Deferred. Rectal: Deferred. Extremities: Atraumatic, negative for cords or calf pain. Neurovascular unremarkable. Full range of motion without defects or deficits Neuro: Awake, alert, oriented. Cranial nerves II through XII unremarkable. Cerebellum unremarkable. Motor and sensory unremarkable throughout. Exam nonfocal. Dorsi and plantar flexion is intact 5/5 inclusive of the great toe bilaterally and patellar reflexes are +2 over 4 bilaterally. Patient ambulated into the ED without assistance or distress. Back: There are no midline step-offs tenderness defects of the thoracic or lumbar spine and there is posterior pelvis tenderness near the left SI joint as described above. There is no upper back or flank pain on palpation and there is no discomfort with palpation of the buttocks on the left Diagnostics: X-ray of the pelvis Patient had lumbar spine x-rays performed 2 days ago and were reviewed by me Therapeutics: Toradol IM, patient was offered Norflex IM but has to drive home as her is unable to drive. I discussed with the patient that at this point further imaging such as an MRI is not indicated but may need to be performed going forward if the pain does not improve. Her pain seems to be localized at the left SI joint and I discussed with her possible interventions and evaluation going forward that she will need to discuss with her clinic provider. I will prescribe her [facility]ac [facility] as well as some tramadol and have strongly advised her to follow-up in the clinic for further reevaluation and care. She states understanding Impression: Left lumbar back pain/SI joint pain subacute Definitive disposition and diagnosis as appropriate pending reevaluation and review of above. Left Back Pain Score (Numeric/FACES): 10 - Related Data Allergies Allergy/AdvReac Type Severity Reaction Status Date / Time amoxicillin Allergy Abdominal Verified 09/10/18 04:00 Pain Home Meds: Home Meds Topiramate 200 mg PO DAILY 12/08/13 [History] Aspirin [Halfprin] 81 mg PO DAILY 10/30/17 [History] Lisinopril/Hydrochlorothiazide [Lisinopril-Hctz 20-12.5 mg Tab] 1 each PO DAILY #90 tablet 10/30/17 [Rx] Metoprolol Succinate 25 mg PO DAILY #90 tab.er.24h 10/30/17 [Rx] Zolpidem Tartrate [Ambien] 5 mg PO BEDTIME PRN 10/30/17 [History] atorvaSTATin [Lipitor] 40 mg PO BEDTIME #30 tab 10/30/17 [Rx] Glimepiride [Amaryl] 1 tab PO DAILY 06/03/18 [History] Sertraline [Zoloft] 0 mg PO DAILY 09/10/18 [History] Past Medical History Cardiovascular History: Reports: 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 Psychiatric History: Reports: Anxiety, Depression Endocrine/Metabolic History: Reports: Diabetes, Type II, Hypothyroidism, Obesity /BMI 30+ - Past Surgical History Female Surgical History: Reports: Section Musculoskeletal Surgical History: Reports: None Social & Family History - Family History Family Medical History: Noncontributory - Caffeine Use Caffeine Use: Reports: Tea ED ROS GENERAL - Review of Systems Review Of Systems: ROS reveals no pertinent complaints other than HPI. ED EXAM, GENERAL - Physical Exam Exam: See Below (See dictation) Course - Vital Signs Last Recorded V/S: Last Vital Signs Temp 36.5 C 09/10/18 03:57 Pulse 78 09/10/18 03:57 Resp BP 150/74 H 09/10/18 03:57 Pulse Ox 94 L 09/10/18 03:57 - Orders/Labs/Meds Orders: Active Orders 24 hr Category Date Time Status Pelvis 1V or 2V [CR] Stat Exams 09/10/18 04:11 Taken Meds: Medications Discontinued Medications Generic Name Dose Route Start Last Admin Trade Name Shey PRN Reason Stop Dose Admin Ketorolac Tromethamine 60 mg 09/10/18 04:11 09/10/18 04:27 Toradol IM 09/10/18 04:12 60 mg ONETIME ONE Administration Departure - Departure Time of Disposition: 04:33 Disposition: Home, Self-Care 01 Condition: Good Clinical Impression: Lumbar back pain - Discharge Information Referrals: PCP,None [Primary Care Provider] - Forms: ED Department Discharge Additional Instructions: The following information is given to patients seen in the emergency department who are being discharged to home. This information is to outline your options for follow-up care. We provide all patients seen in our emergency department with a follow-up referral. The need for follow-up, as well as the timing and circumstances, are variable depending upon the specifics of your emergency department visit. If you don't have a primary care physician on staff, we will provide you with a referral. We always advise you to contact your personal physician following an emergency department visit to inform them of the circumstance of the visit and for follow-up with them and/or the need for any referrals to a consulting specialist. The emergency department will also refer you to a specialist when appropriate. This referral assures that you have the opportunity for followup care with a specialist. All of these measure are taken in an effort to provide you with optimal care, which includes your followup. Under all circumstances we always encourage you to contact your private physician who remains a resource for coordinating your care. When calling for followup care, please make the office aware that this follow-up is from your recent emergency room visit. If for any reason you are refused follow-up, please contact the [facility] emergency department at and ask to speak to the emergency department charge nurse. [facility] Primary care- Internal Medicine and Family [address] [id number] You have been prescribed medications from [facility], diclofenac, Flexeril, Ultram/tramadol, which he continues for discomfort. These continue with ice to areas after activities . Please contact her provider in the clinic on Tuesday morning to discuss with her further evaluation and care plan and return to ER as needed as discussed Please only take the Flexeril and Ultram/tramadol you have been given while you' re at home as they may cause drowsiness dizziness and you do not want to be driving her car or out and about with these medications. - My Orders Last 24 Hours: My Active Orders 09/10/18 04:11 Pelvis 1V or 2V [CR] Stat - Assessment/Plan Last 24 Hours: My Active Orders 09/10/18 04:11 Pelvis 1V or 2V [CR] Stat
[2018-09-10] MEDS ORDERED: Ketorolac 60 MG/2 ML SDV IM ONE (04:11)
--- NOTE | 2018-09-10 04:33 | CR ---
INDICATION: Pelvis pain following fall TECHNIQUE: Pelvis radiograph 1 view COMPARISON: None FINDINGS: Bone: No acute fractures or aggressive bone lesions are identified. Joint: The hip joint is unremarkable. The visualized sacroiliac joints are unremarkable in appearance. The pubic symphysis is normal in appearance. Soft tissue: A crescentic, coarse calcification is seen in the right hemipelvis likely due to a fibroid. No radiopaque foreign bodies are seen. IMPRESSION: 1. No acute osseous injuries or abnormalities are noted. Dictated by Malachi Dukes MD @ 09/10/2018 4:31:38 AM Dictated by: Malachi Dukes MD @ 09/10/2018 04:31:41 (Electronically Signed)
== END 2018-09-10 04:47 | disposition home or self-care (01) ==
LOC: MW.ED 03:48
DX: M53.3 Sacrococcygeal disorders, not elsewhere classified (principal); M54.5 Low back pain; I10 Essential (primary) hypertension; F41.9 Anxiety disorder, unspecified; F32.9 Major depressive disorder, single episode, unspecified; E11.9 Type 2 diabetes mellitus without complications; E03.9 Hypothyroidism, unspecified; Z79.82 Long term (current) use of aspirin; Z79.899 Other long term (current) drug therapy; Z88.1 Allergy status to other antibiotic agents
CPT/HCPCS: 72170; 96372; 99283; J1885

== ENCOUNTER 2019-02-21 07:23 | Emergency (ER) | payer MEDICARE, MEDICAID ==
[2019-02-21] MEDS ORDERED: Bacitracin Oint 1 GM U/D Packet TOP ONE (07:32)
[2019-02-21] MEDS ORDERED: Diphtheria,Pertussis(Acell),Tetanus Vaccine 0.5 ML Syringe IM ONE (07:33)
--- NOTE | 2019-02-21 07:37 | EDM.PDOC ---
ED HPI GENERAL MEDICAL PROBLEM - General Chief Complaint: Lower Extremity Injury/Pain Stated Complaint: SPRAINED ANKLE Time Seen by Provider: 02/21/19 07:28 - History of Present Illness INITIAL COMMENTS - FREE TEXT/NARRATIVE: HISTORY AND PHYSICAL: History of present illness: The patient is a 58-year-old female with a history of hypertension diabetes and hypercholesterolemia who presents after she lost her footing this morning and slept and her ankle and foot on the right side went underneath her when she fell. She did not hit her head pass out or black out and has no head neck or back pain and no hip or pelvis pain but only complains of pain at her right ankle laterally as well as at the base of the great toe. She denies any thigh hip or tib-fib tenderness and no other extremity complaints. Prior to this fall she was in her usual state of good health without any systemic issues and had no preceding dizziness lightheadedness or other issues. She said that it was just very slippery and she slipped on the step. Review of systems: As per history of present illness and below otherwise all systems reviewed and negative. Past medical history: As per history of present illness and as reviewed below otherwise noncontributory. Surgical history: As per history of present illness and as reviewed below otherwise noncontributory. Social history: No reported history of drug or alcohol abuse. Family history: As per history of present illness and as reviewed below otherwise noncontributory. Physical exam: General: Well-developed well-nourished overweight female who is nontoxic and vital signs are noted by me HEENT: Atraumatic, normocephalic, pupils reactive, negative for conjunctival pallor or scleral icterus, mucous membranes moist, throat clear, neck supple, nontender, trachea midline. There are no midline step-offs in his defects of the cervical spine Lungs: Clear to auscultation, breath sounds equal bilaterally, chest nontender. Heart: S1S2, regular and rhythm no overt murmurs Abdomen: Soft, nondistended, nontender. NABS Negative for costovertebral tenderness. Pelvis: Stable nontender. No lateral hip tenderness on palpation Genitourinary: Deferred. Rectal: Deferred. Extremities: Atraumatic and full range of motion of all extremities with exception of the right ankle where there is soft tissue swelling at the lateral malleolus but no visible malalignment of the ankle joint and tenderness laterally only with no medial malleolus tenderness. The proximal tib-fib knee thigh and hip are intact without tenderness defects or deformities. There is a superficial circular skin abrasion at the dorsal aspect of the first MTP area without any surrounding erythema or soft tissue swelling. There is tenderness at the great toe in this region without defects or deformities and the remainder of the foot calcaneus and talus are intact without tenderness defects or deformities.. Neurovascular unremarkable. Neuro: Awake, alert, oriented. Cranial nerves II through XII unremarkable. Cerebellum unremarkable. Motor and sensory unremarkable throughout. Exam nonfocal. Back: There are no midline step-offs in his defects of the thoracic or lumbar spine no posterior rib or posterior pelvis tenderness Diagnostics: X-ray right ankle and foot Therapeutics: Tdap, local wound care with cleansing and bacitracin, Toradol ortho boot As patient is not going to be able to use crutches due to her body habitus we have contacted [employer] for a walker Impression: Right ankle/foot injury sprain/contusion Definitive disposition and diagnosis as appropriate pending reevaluation and review of above. right ankle Pain Score (Numeric/FACES): 8 - Related Data Allergies Allergy/AdvReac Type Severity Reaction Status Date / Time amoxicillin Allergy Abdominal Verified 02/21/19 07:33 Pain clavulanic acid Allergy Nausea and Verified 02/21/19 07:33 [From Augmentin] Vomiting Home Meds: Home Meds Topiramate 200 mg PO DAILY 12/08/13 [History] Aspirin [Halfprin] 81 mg PO DAILY 10/30/17 [History] Lisinopril/Hydrochlorothiazide [Lisinopril-Hctz 20-12.5 mg Tab] 1 each PO DAILY #90 tablet 10/30/17 [Rx] Metoprolol Succinate 25 mg PO DAILY #90 tab.er.24h 10/30/17 [Rx] Zolpidem Tartrate [Ambien] 5 mg PO BEDTIME PRN 10/30/17 [History] atorvaSTATin [Lipitor] 40 mg PO BEDTIME #30 tab 10/30/17 [Rx] Glimepiride [Amaryl] 1 tab PO DAILY 06/03/18 [History] Sertraline [Zoloft] 0 mg PO DAILY 09/10/18 [History] Past Medical History HEENT History: Reports: None Cardiovascular History: Reports: High Cholesterol, Hypertension Respiratory History: Reports: None Gastrointestinal History: Reports: None Genitourinary History: Reports: None 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 Psychiatric History: Reports: Anxiety, Depression Endocrine/Metabolic History: Reports: Diabetes, Type II, Hypothyroidism, Obesity /BMI 30+ Hematologic History: Reports: None Immunologic History: Reports: None Oncologic (Cancer) History: Reports: None Dermatologic History: Reports: None - Past Surgical History Head Surgeries/Procedures: Reports: None HEENT Surgical History: Reports: None Cardiovascular Surgical History: Reports: None Respiratory Surgical History: Reports: None GI Surgical History: Reports: None Female Surgical History: Reports: Section Endocrine Surgical History: Reports: None Neurological Surgical History: Reports: None Musculoskeletal Surgical History: Reports: None Oncologic Surgical History: Reports: None Dermatological Surgical History: Reports: None Social & Family History - Family History Family Medical History: Noncontributory - Tobacco Use Smoking Status *Q: Never Smoker Second Hand Smoke Exposure: No - Caffeine Use Caffeine Use: Reports: Tea - Recreational Drug Use Recreational Drug Use: No Review of Systems - Review of Systems Review Of Systems: Comprehensive ROS is negative, except as noted in HPI. ED EXAM, GENERAL - Physical Exam Exam: See Below (see Dictation) Course - Vital Signs Last Recorded V/S: Last Vital Signs Temp 35.7 C 02/21/19 07:27 Pulse 108 H 02/21/19 07:27 Resp 18 02/21/19 07:27 BP 173/80 H 02/21/19 07:27 Pulse Ox 96 02/21/19 07:27 - Orders/Labs/Meds Orders: Active Orders 24 hr Category Date Time Status Communication Order [RC] STAT Care 02/21/19 07:32 Active Vaccines to be Administered [RC] PER UNIT ROUTINE Care 02/21/19 07:33 Active DME for Discharge [COMM] Stat Oth 02/21/19 08:18 Ordered Meds: Medications Discontinued Medications Generic Name Dose Route Start Last Admin Trade Name Freq PRN Reason Stop Dose Admin Bacitracin 1 dose 02/21/19 07:32 02/21/19 07:47 Bacitracin Oint 1 Gm TOP 02/21/19 07:33 1 dose ONETIME ONE Administration Diphtheria/Tetanus/Acell Pertussis 0.5 ml 02/21/19 07:33 02/21/19 07:46 Adacel IM 02/21/19 07:34 0.5 ml .ONCE ONE Administration Ketorolac Tromethamine 60 mg 02/21/19 07:37 02/21/19 07:52 Toradol IM 02/21/19 07:38 Not Given ONETIME ONE Departure - Departure Time of Disposition: 08:19 Disposition: Home, Self-Care 01 Condition: Good Clinical Impression: Right ankle injury Qualifiers: Encounter type: initial encounter Qualified Code(s): S99.911A - Unspecified injury of right ankle, initial encounter Foot injury Qualifiers: Encounter type: initial encounter Laterality: right Qualified Code(s): S99.921A - Unspecified injury of right foot, initial encounter - Discharge Information Instructions: How To Use a Four-Wheeled Walker, Ankle Sprain, Eibf-ut-Feoh, Walking Boot, Adult Referrals: PCP,None [Primary Care Provider] - Forms: ED Department Discharge Additional Instructions: The following information is given to patients seen in the emergency department who are being discharged to home. This information is to outline your options for follow-up care. We provide all patients seen in our emergency department with a follow-up referral. The need for follow-up, as well as the timing and circumstances, are variable depending upon the specifics of your emergency department visit. If you don't have a primary care physician on staff, we will provide you with a referral. We always advise you to contact your personal physician following an emergency department visit to inform them of the circumstance of the visit and for follow-up with them and/or the need for any referrals to a consulting specialist. The emergency department will also refer you to a specialist when appropriate. This referral assures that you have the opportunity for followup care with a specialist. All of these measure are taken in an effort to provide you with optimal care, which includes your followup. Under all circumstances we always encourage you to contact your private physician who remains a resource for coordinating your care. When calling for followup care, please make the office aware that this follow-up is from your recent emergency room visit. If for any reason you are refused follow-up, please contact the [facility] emergency department at and ask to speak to the emergency department charge nurse. STEVE [facility] Professional Building [address] [place] [address], [address] [place] [address] Ice and elevate the area as much as possible to reduce inflammation. Where ortho bloated all times for the next 5 days and loosen Velcro or remove at sleep times. Use walker so as not to weight-bear. Please call and schedule follow-up appointment in our clinic using resources given to above for reevaluation and further care. Use [id number] medications for pain management, ibuprofen/Motrin, and at the stronger medication only when you're home and for sleep. - My Orders Last 24 Hours: My Active Orders 02/21/19 07:32 Communication Order [RC] STAT 02/21/19 07:33 Vaccines to be Administered [RC] PER UNIT ROUTINE 02/21/19 08:18 DME for Discharge [COMM] Stat - Assessment/Plan Last 24 Hours: My Active Orders 02/21/19 07:32 Communication Order [RC] STAT 02/21/19 07:33 Vaccines to be Administered [RC] PER UNIT ROUTINE 02/21/19 08:18 DME for Discharge [COMM] Stat
[2019-02-21] MEDS: Ketorolac 60 MG/2 ML SDV IM ONE ×2 (07:46→07:52)
--- NOTE | 2019-02-21 08:07 | CR ---
Indication: Right ankle pain Technique: Right ankle 3 views Comparison: None Findings: No acute fracture or dislocation. Ankle mortise is intact. Mild hypertrophic spurring of inferior aspect of the medial malleolus. Degenerative changes of the visualized midfoot. Tiny plantar and Achilles calcaneal spurs. Soft tissue swelling about the calf and ankle. Impression: 1. No acute findings. 2. Degenerative changes of the ankle and midfoot. 3. Soft tissue swelling about the calf and ankle. Dictated by Bhakti Lester MD @ Feb 21 2019 8:05AM Signed by Dr. Bhakti Lester @ Feb 21 2019 8:07AM
--- NOTE | 2019-02-21 08:07 | CR ---
Indication: Right foot pain. Technique: Right foot 2 views Comparison: None Findings: No acute fracture or dislocation. Degenerative changes throughout the foot. Tiny plantar and Achilles calcaneal spurs. Soft tissue swelling about the foot. Impression: 1. No acute findings. 2. Degenerative changes of the foot. 3. Soft tissue swelling about the foot. Dictated by Bhakti Lester MD @ Feb 21 2019 8:03AM Signed by Dr. Bhakti Lester @ Feb 21 2019 8:05AM
[2019-02-21] MEDS ORDERED: Ketorolac 60 MG/2 ML SDV IM ONE (08:30)
[2019-02-21] MEDS ORDERED: Ketorolac 60 MG/2 ML SDV ONE (08:30)
== END 2019-02-21 09:40 | disposition home or self-care (01) ==
LOC: MW.ED 07:23
DX: S99.911A Unspecified injury of right ankle, initial encounter (principal); S99.921A Unspecified injury of right foot, initial encounter; Z23 Encounter for immunization; I10 Essential (primary) hypertension; E78.00 Pure hypercholesterolemia, unspecified; Z86.73 Personal history of transient ischemic attack (TIA), and cerebral infarction without residual deficits; E11.9 Type 2 diabetes mellitus without complications; E03.9 Hypothyroidism, unspecified; E66.9 Obesity, unspecified; Z68.41 Body mass index [BMI] 40.0-44.9, adult; Z79.82 Long term (current) use of aspirin; Z88.1 Allergy status to other antibiotic agents; Z79.84 Long term (current) use of oral hypoglycemic drugs; W10.9XXA Fall (on) (from) unspecified stairs and steps, initial encounter
CPT/HCPCS: 73610; 73620; 90471; 90715; 96372; 99283; J1885; 99284

== ENCOUNTER 2020-03-04 19:42 | Emergency (ER) | payer MEDICARE ==
--- NOTE | 2020-03-04 19:45 | EDM.PDOC ---
ED HPI GENERAL MEDICAL PROBLEM - General Stated Complaint: COUGH AND SORE THROAT Time Seen by Provider: 03/04/20 19:44 Source of Information: Reports: Patient History Limitations: Reports: No Limitations - History of Present Illness INITIAL COMMENTS - FREE TEXT/NARRATIVE: 59 yo F h/o HTN, DM 2, CAD, HLD presents with chest discomfort. 2 hours ago while she was watching TV she felt midsternal chest "congested ", shortness of breath. She denies nausea, vomiting, sweats, palpitations, fever, chills, generalized malaise or myalgias. She has had a chronic cough that has worsened over the past month. She also notes chronic sore throat that has worsened over the past 2 weeks. ROS: A 10-point review of systems, other than pertinent positives and negatives as stated per HPI, is otherwise negative Past medical history: No additional pertinent history Past Surgical history: No additional pertinent history Social history: No additional pertinent history Family history: No additional pertinent history PHYSICAL EXAM General: AOx4, GCS = 15, BMI > 30, No distress HEENT: dry mucous membrane, no tonsillar swelling or erythema or exudates. Mallampati score = 3 Neck: supple, no meningismus, no Kernig or Brudzinski Cardiac: S1S2 RRR, no pedal edema Respiratory: CTAB, no crackles or rales, no wheezing Abdomen: Soft, nontender, no rebound or guarding, nondistended, no pulsatile mass. Back: nontender Musculoskeletal: NVI distally, no deformity Neuro: No focal deficits, CN 2 - 12 WNL. - Related Data Allergies Allergy/AdvReac Type Severity Reaction Status Date / Time amoxicillin Allergy Abdominal Verified 03/04/20 19:49 Pain clavulanic acid Allergy Nausea and Verified 03/04/20 19:49 [From Augmentin] Vomiting Home Meds: Home Meds Topiramate 200 mg PO DAILY 12/08/13 [History] Aspirin [Halfprin] 81 mg PO DAILY 10/30/17 [History] Lisinopril/Hydrochlorothiazide [Lisinopril-Hctz 20-12.5 mg Tab] 1 each PO DAILY #90 tablet 10/30/17 [Rx] Metoprolol Succinate 25 mg PO DAILY #90 tab.er.24h 10/30/17 [Rx] Zolpidem Tartrate [Ambien] 5 mg PO BEDTIME PRN 10/30/17 [History] atorvaSTATin [Lipitor] 40 mg PO BEDTIME #30 tab 10/30/17 [Rx] Glimepiride [Amaryl] 1 tab PO DAILY 06/03/18 [History] Sertraline [Zoloft] 0 mg PO DAILY 09/10/18 [History] Past Medical History HEENT History: Reports: None Cardiovascular History: Reports: High Cholesterol, Hypertension Respiratory History: Reports: None Gastrointestinal History: Reports: None Genitourinary History: Reports: None 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 Psychiatric History: Reports: Anxiety, Depression Endocrine/Metabolic History: Reports: Diabetes, Type II, Hypothyroidism, Obesity/BMI 30+ Hematologic History: Reports: None Immunologic History: Reports: None Oncologic (Cancer) History: Reports: None Dermatologic History: Reports: None - Past Surgical History Head Surgeries/Procedures: Reports: None HEENT Surgical History: Reports: None Cardiovascular Surgical History: Reports: None Respiratory Surgical History: Reports: None GI Surgical History: Reports: None Female Surgical History: Reports: Section Endocrine Surgical History: Reports: None Neurological Surgical History: Reports: None Musculoskeletal Surgical History: Reports: None Oncologic Surgical History: Reports: None Dermatological Surgical History: Reports: None Social & Family History - Family History Family Medical History: No Pertinent Family History - Caffeine Use Caffeine Use: Reports: Tea ED ROS GENERAL - Review of Systems Review Of Systems: See Below (see dictation) ED EXAM, GENERAL - Physical Exam Exam: See Below (see dictation) #1 Interpretation EKG Interpretation Comments: Heart rate = 79 bpm, left bundle branch block, Sgarbossa negative, normal sinus rhythm, normal QRS interval, no STEMI. EKG and rhythm strip interpreted by me at 2004 Course - Vital Signs Last Recorded V/S: Last Vital Signs Temp 96.5 F L 03/04/20 19:52 Pulse 85 03/04/20 19:52 Resp 22 H 03/04/20 19:52 BP Pulse Ox 99 03/04/20 19:52 - Orders/Labs/Meds Orders: Active Orders 24 hr Category Date Time Status EKG 12 Lead [EKG Documentation Completion] [RC] STAT Care 03/04/20 19:47 Active CULTURE STREP A CONFIRMATION [RM] Stat Lab 03/04/20 20:00 Results STREP SCRN A RAPID W CULT CONF [RM] Stat Lab 03/04/20 20:00 Results Isolation [COMM] Routine Oth 03/04/20 19:46 Active Labs: Laboratory Tests 03/04/20 03/04/20 03/04/20 Range/Units 20:00 20:53 20:53 WBC 10.91 (4.0-11.0) K/uL RBC 4.78 (4.30-5.90) M/uL Hgb 13.2 (12.0-16.0) g/dL Hct 42.5 (36.0-46.0) % MCV 88.9 (80.0-98.0) fL MCH 27.6 (27.0-32.0) pg MCHC 31.1 (31.0-37.0) g/dL RDW Std Deviation 43.2 (28.0-62.0) fl RDW Coeff of [place] 13 (11.0-15.0) % Plt Count 232 (150-400) K/uL MPV 10.80 (7.40-12.00) fL Neut % (Auto) 62.1 (48.0-80.0) % Lymph % (Auto) 30.5 (16.0-40.0) % [place] % (Auto) 5.7 (0.0-15.0) % Eos % (Auto) 1.4 (0.0-7.0) % Baso % (Auto) 0.3 (0.0-1.5) % Neut # (Auto) 6.8 H (1.4-5.7) K/uL Lymph # (Auto) 3.3 H (0.6-2.4) K/uL [place] # (Auto) 0.6 (0.0-0.8) K/uL Eos # (Auto) 0.2 (0.0-0.7) K/uL Baso # (Auto) 0.0 (0.0-0.1) K/uL Nucleated RBC % 0.0 /100WBC Nucleated RBCs # 0 K/uL Sodium 141 (136-145) mmol/L Potassium 3.8 (3.5-5.1) mmol/L Chloride 103 (98-107) mmol/L Carbon Dioxide 31.9 (21.0-32.0) mmol/L BUN 15 (7.0-18.0) mg/dL Creatinine 0.8 (0.6-1.0) mg/dL Est Cr Clr Drug Dosing 59.89 mL/min Estimated GFR (MDRD) > 60.0 ml/min Glucose 234 H (74-106) mg/dL Calcium 9.1 (8.5-10.1) mg/dL Total Bilirubin 0.2 (0.2-1.0) mg/dL AST 21 (15-37) IU/L ALT 34 (14-63) IU/L Alkaline Phosphatase 108 (46-116) U/L Troponin I < 0.050 (0.000-0.056) ng/mL B-Natriuretic Peptide (<100) PG/ML Total Protein 7.7 (6.4-8.2) g/dL Albumin 3.5 (3.4-5.0) g/dL Globulin 4.2 H (2.6-4.0) g/dL Albumin/Globulin Ratio 0.8 L (0.9-1.6) SARS-CoV-2 RNA (FARSHAD) NEGATIVE (NEGATIVE) 03/04/20 Range/Units 20:53 WBC (4.0-11.0) K/uL RBC (4.30-5.90) M/uL Hgb (12.0-16.0) g/dL Hct (36.0-46.0) % MCV (80.0-98.0) fL MCH (27.0-32.0) pg MCHC (31.0-37.0) g/dL RDW Std Deviation (28.0-62.0) fl RDW Coeff of [place] (11.0-15.0) % Plt Count (150-400) K/uL MPV (7.40-12.00) fL Neut % (Auto) (48.0-80.0) % Lymph % (Auto) (16.0-40.0) % [place] % (Auto) (0.0-15.0) % Eos % (Auto) (0.0-7.0) % Baso % (Auto) (0.0-1.5) % Neut # (Auto) (1.4-5.7) K/uL Lymph # (Auto) (0.6-2.4) K/uL [place] # (Auto) (0.0-0.8) K/uL Eos # (Auto) (0.0-0.7) K/uL Baso # (Auto) (0.0-0.1) K/uL Nucleated RBC % /100WBC Nucleated RBCs # K/uL Sodium (136-145) mmol/L Potassium (3.5-5.1) mmol/L Chloride (98-107) mmol/L Carbon Dioxide (21.0-32.0) mmol/L BUN (7.0-18.0) mg/dL Creatinine (0.6-1.0) mg/dL Est Cr Clr Drug Dosing mL/min Estimated GFR (MDRD) ml/min Glucose (74-106) mg/dL Calcium (8.5-10.1) mg/dL Total Bilirubin (0.2-1.0) mg/dL AST (15-37) IU/L ALT (14-63) IU/L Alkaline Phosphatase (46-116) U/L Troponin I (0.000-0.056) ng/mL B-Natriuretic Peptide 87 (<100) PG/ML Total Protein (6.4-8.2) g/dL Albumin (3.4-5.0) g/dL Globulin (2.6-4.0) g/dL Albumin/Globulin Ratio (0.9-1.6) SARS-CoV-2 RNA (FARSHAD) (NEGATIVE) - Re-Assessments/Exams Free Text/Narrative Re-Assessment/Exam: 03/04/20 23:42 She is choosing to leave against medical advice. I personally explained to the patient that choosing to do so may result in permanent bodily harm or . I discussed at great length that without further evaluation and monitoring there may be unforeseen circumstances and deterioration causing permanent bodily harm or as a result of their choice. The patient is alert, oriented, and competent at this time. The patient states that they are aware of the serious risks as explained, but they still choose to leave against medical advice. The patient is aware that they did not allow us to complete their evaluation, and there is still the possibility that an emergency condition could exist. This has been thoroughly explained to the patient and the patient has indicated your understanding of such. The patient is assuming all risk and liability for such a condition, or for such a condition subsequently developing. The patient is doing so at their own free will, with a full knowledge of the potential consequences of these actions. The patient was encouraged to return at any time should they experience any changes about evaluation, or should they develop any new or worsening symptoms that concerns them. Departure - Departure Time of Disposition: 23:43 Disposition: Against Medical Advice 07 Condition: Good Clinical Impression: Atypical chest pain - Discharge Information *PRESCRIPTION DRUG MONITORING PROGRAM REVIEWED*: Not Applicable *COPY OF PRESCRIPTION DRUG MONITORING REPORT IN PATIENT DWIGHT: Not Applicable Instructions: Nonspecific Chest Pain, Adult, [id number] Referrals: Liss Tomlinson NP [Primary Care Provider] - Forms: ED Department Discharge, Refusal of Care AMA Sepsis Event Note (ED) - Focused Exam Vital Signs: Vital Signs Temp Pulse Resp Pulse Ox 03/04/20 19:52 96.5 F L 85 22 H 99 - My Orders Last 24 Hours: My Active Orders 03/04/20 19:46 Isolation [COMM] Routine 03/04/20 19:47 EKG 12 Lead [EKG Documentation Completion] [RC] STAT 03/04/20 20:00 CULTURE STREP A CONFIRMATION [RM] Stat STREP SCRN A RAPID W CULT CONF [RM] Stat - Assessment/Plan Last 24 Hours: My Active Orders 03/04/20 19:46 Isolation [COMM] Routine 03/04/20 19:47 EKG 12 Lead [EKG Documentation Completion] [RC] STAT 03/04/20 20:00 CULTURE STREP A CONFIRMATION [RM] Stat STREP SCRN A RAPID W CULT CONF [RM] Stat
--- NOTE | 2020-03-04 20:31 | CR ---
INDICATION: Cough. COMPARISON: 10/29/2017. TECHNIQUE: Single portable AP view of the chest. FINDINGS: There is mild asymmetric elevation of the right hemidiaphragm, similar to prior. The lungs are otherwise adequately inflated. No focal consolidation or pneumothorax. Borderline vascular congestion. Cardiomediastinal silhouette is unremarkable for AP view. There are no acute osseous findings. IMPRESSION: Borderline vascular congestion. No focal consolidation. Dictated by Neeraj Quan MD @ 03/04/2020 8:29:53 PM Dictated by: Neeraj Quan MD @ 03/04/2020 20:30:05 (Electronically Signed)
[2020-03-04 21:31] LABS: BLOOD UREA NITROGEN,BUN 15 mg/dL (7.0-18.0); CARBON DIOXIDE,CO2 31.9 mmol/L (21.0-32.0); CHLORIDE,CL 103 mmol/L (98-107); GLUCOSE RANDOM 234 mg/dL (74-106); POTASSIUM,K 3.8 mmol/L (3.5-5.1); SODIUM,NA 141 mmol/L (136-145)
== END 2020-03-04 22:15 | disposition left against medical advice (07) ==
LOC: MW.ED 19:42
DX: R07.89 Other chest pain (principal); E11.9 Type 2 diabetes mellitus without complications; I10 Essential (primary) hypertension; E78.5 Hyperlipidemia, unspecified; I25.10 Atherosclerotic heart disease of native coronary artery without angina pectoris; E78.00 Pure hypercholesterolemia, unspecified; M19.90 Unspecified osteoarthritis, unspecified site; F41.9 Anxiety disorder, unspecified; F32.9 Major depressive disorder, single episode, unspecified; E66.9 Obesity, unspecified; Z68.41 Body mass index [BMI] 40.0-44.9, adult; Z20.828 Contact with and (suspected) exposure to other viral communicable diseases; Z88.1 Allergy status to other antibiotic agents; Z79.82 Long term (current) use of aspirin; Z79.899 Other long term (current) drug therapy; Z79.84 Long term (current) use of oral hypoglycemic drugs; Z86.73 Personal history of transient ischemic attack (TIA), and cerebral infarction without residual deficits
CPT/HCPCS: 36415; 71045; 80053; 83880; 84484; 85025; 87081; 87804; 87880; 93005; 99285; U0002; 93010; 99283